=== PATIENT | female | born 2000 ===

== ENCOUNTER 2022-05-18 06:00 | Outpatient (RCR) | payer MEDICAID, SELFPAY | END 2022-06-07 23:59 | disposition home or self-care (01) | LOC: MPT 06:00 | PROVIDERS: Referring Provider Nurse Practitioner Family; Visit Provider Nurse Practitioner Family | DX: M79.605 Pain in left leg (principal); M79.604 Pain in right leg | CPT/HCPCS: 97110; 97116; 97140; 97161; 97530 ==

== ENCOUNTER 2022-06-08 06:00 | Outpatient (RCR) | payer MEDICAID, SELFPAY | END 2022-07-07 23:59 | disposition home or self-care (01) | LOC: MPT 06:00 | PROVIDERS: Referring Provider Nurse Practitioner Family; Visit Provider Nurse Practitioner Family | DX: M79.604 Pain in right leg (principal); M79.605 Pain in left leg | CPT/HCPCS: 97110; 97116; 97140; 97530 ==

== ENCOUNTER 2022-07-08 06:00 | Outpatient (RCR) | payer MEDICAID, SELFPAY | END 2022-08-07 23:59 | disposition home or self-care (01) | LOC: MPT 06:00 | PROVIDERS: Visit Provider Nurse Practitioner Family | DX: M79.605 Pain in left leg (principal); M79.604 Pain in right leg | CPT/HCPCS: 97110; 97116; 97530 ==

== ENCOUNTER 2022-08-08 06:00 | Outpatient (RCR) | payer MEDICAID, SELFPAY | END 2022-09-06 23:59 | disposition home or self-care (01) | LOC: SPT 06:00 | PROVIDERS: Visit Provider Nurse Practitioner Family | DX: M79.605 Pain in left leg (principal); M79.604 Pain in right leg | CPT/HCPCS: 97116; 97530 ==

== ENCOUNTER 2022-09-07 06:00 | Outpatient (RCR) | payer MEDICAID, SELFPAY | END 2022-10-07 23:59 | disposition home or self-care (01) | LOC: SPT 06:00 | PROVIDERS: Visit Provider Nurse Practitioner Family | DX: M79.605 Pain in left leg (principal); M79.604 Pain in right leg | CPT/HCPCS: 97110; 97116; 97530 ==

== ENCOUNTER 2023-03-22 06:00 | Outpatient (RCR) | payer MEDICAID, SELFPAY | END 2023-04-06 23:59 | disposition home or self-care (01) | LOC: SPT 06:00 | PROVIDERS: Visit Provider Nurse Practitioner Family | DX: M79.606 Pain in leg, unspecified (principal) | CPT/HCPCS: 97161 ==

== ENCOUNTER 2023-04-07 06:00 | Outpatient (RCR) | payer MEDICAID, SELFPAY | END 2023-05-07 23:59 | disposition home or self-care (01) | LOC: SPT 06:00 | PROVIDERS: Visit Provider Nurse Practitioner Family | DX: M79.606 Pain in leg, unspecified (principal) | CPT/HCPCS: 97110; 97140 ==

== ENCOUNTER 2023-05-08 06:00 | Outpatient (RCR) | payer MEDICAID, SELFPAY | END 2023-06-04 23:59 | disposition home or self-care (01) | LOC: SPT 06:00 | PROVIDERS: Visit Provider Nurse Practitioner Family | DX: M79.606 Pain in leg, unspecified (principal) | CPT/HCPCS: 97110; 97530 ==